=== PATIENT | female | born 1965 | race Caucasian/White ===

== ENCOUNTER → 2017-09-12 | Outpatient (CLI) | payer BC ==
--- NOTE | 2017-09-12 15:37 | MAMMOGRAPHY REPORT ---
BILATERAL DIGITAL SCREENING MAMMOGRAM TOMOSYNTHESIS WITH CAD: 09/12/2017 CLINICAL HISTORY: Routine screening. Patient has no complaints. TECHNIQUE: Breast tomosynthesis in addition to standard 2D mammography was performed. Current study was also evaluated with a Computer Aided Detection (CAD) system. COMPARISON: Comparison is made to exams dated: 09/11/2016 mammogram, 09/08/2015 mammogram, 09/07/2014 m ammogram, 09/06/2013 mammogram, 09/03/2012 mammogram, and 04/16/2011 mammogram - [facility] enter. BREAST COMPOSITION: The tissue of both breasts is heterogeneously dense, which may obscure small mas ses. FINDINGS: No suspicious masses, calcifications, or areas of architectural distortion are noted in ei ther breast. There has been no significant interval change compared to prior exams. Bilateral benign appearing calcifications are not significantly changed. IMPRESSION: ACR BI-RADS CATEGORY 2: BENIGN There is no mammographic evidence of malignancy. A 1 year screening mammogram is recommended. The pa tient will receive written notification of the results. Approximately 10% of breast cancers are not detected with mammography. A negative mammographic report should not delay biopsy if a clinically suggestive mass is present. Avril De Souza M.D. /:09/12/2017 12:58:44 Account Review Specialist: Sheeba BARNETT)(M), [facility] letter sent: Normal 1/2 BI-RADS Code: ACR BI-RADS Category 2: Benign
== END | disposition home or self-care (01) ==
LOC: C.MAMM 09:58
PROVIDERS: ATTEND Obstetrics & Gynecology
DX: Z12.31 Encounter for screening mammogram for malignant neoplasm of breast (principal)

== ENCOUNTER 2017-11-02 15:32 | Emergency (ER) | payer BC ==
[~2017-11-02] VITALS: Ht 180.3 cm; Wt 77.1 kg
[2017-11-02 15:34] VITALS: TEMP 36.5; Ht 180.3 cm; Wt 77.1 kg
[2017-11-02] MEDS ORDERED: SODIUM CHLORIDE 0.9% 1000ML 500 ML IV STA (15:49)
[2017-11-02] MEDS ORDERED: DILTIAZEM BOLUS / DRIP IV STA (15:49)
[2017-11-02] MEDS ORDERED: VNTHFA/IN INH (15:54)
[2017-11-02] MEDS ORDERED: VERA120T15 PO (15:54)
[2017-11-02 15:57] VITALS: O2SAT 99
[2017-11-02 15:57] LABS: BASO % 0.2 %; BASO ABS # 0.02 K/uL (0-0.2); EOS % 1.6 %; EOS ABS # 0.17 K/uL (0-0.5); HEMOGLOBIN 14.4 g/dL (12.0-16.0); IG# 0.02 K/uL (0.00-0.02); LYMPH % 25.2 %; LYMPH ABS # 2.64 K/uL (1.2-3.4); MEAN CELL VOLUME 90.1 fL (80-100); MEAN CORPUSCULAR HEMOGLOBIN 31.6 pg (25-34); MEAN CORPUSCULAR HGB CONC 35.1 g/dl (32-36); MEAN PLATELET VOLUME 10.2 fL (7.4-10.4); MONO % 8.9 %; MONO ABS # 0.93 K/uL (0.11-0.59); NEUT % 63.9 %; NEUT ABS # 6.69 K/uL (1.4-6.5); PLATELET COUNT 294 K/uL (130-400); RED CELL DISTRIBUTION WIDTH CV 13.3 % (11.5-14.5); RED CELL DISTRIBUTION WIDTH SD 43.5 fL (36.4-46.3); WHITE BLOOD COUNT 10.47 K/uL (4.8-10.8)
[2017-11-02] MEDS ORDERED: DILTIAZEM HCL INJ 125 MG in DEXTROSE 5% 100ML IV PRN (16:00)
[2017-11-02 16:06] LABS: PTT PATIENT 25.4 SECONDS (21.0-31.0)
[2017-11-02] MEDS ORDERED: DILTIAZEM HCL 5 MG/ML 5 ML VIAL ONE (16:09)
--- NOTE | 2017-11-02 16:13 | EMERGENCY ROOM VISIT NOTE ---
History Report prepared by Kyra: Sharla Fam Under the Supervision of: Dr. Eliot Merida M.D. First contact with patient: 15:38 Chief Complaint: CARDIAC ASSESSMENT Stated Complaint: CARDIAC ARRYTHMIA History of Present Illness The patient is a 52 year old female who presents to the Emergency Room for a cardiac assessment. The patient states that that she has atrial fibrillation and thinks she noticed it this morning. She notes that she woke up last night and felt strange so she believes that it may have started in the middle of the night. She states that it feels like her heart is jumping around and she has pressure on her chest. She reports that she took Verapamil 120 mg this morning, but states that it was from four years ago. The patient complains of weakness and lightheadedness. The patient denies shortness of breath, nausea, and vomiting. She denies taking a blood thinner, drinking more alcohol than normal, and ever being cardioverted. She notes that she takes Albuterol for asthma and had a heart catheterization that was normal. Source of History: patient Onset: this morning Position: other (global) Quality: pressure Timing: other (episode) Associated Symptoms: + chest pain, + weakness, No SOB, No nausea, No vomiting Note: The patient complains of lightheadedness. Review of Systems See HPI for pertinent positives & negatives. A total of 10 systems reviewed and were otherwise negative. Past Medical & Surgical Medical Problems: (1) Asthma (2) Asthma W/O Status Asthm (3) Atrial fibrillation (4) H/O Prinzmetal angina (5) Tachycardia Nos Family History Patient reports no known family medical history. Social History Smoking Status: Never Smoker Marital Status: Housing Status: lives with family Occupation Status: employed Current/Historical Medications Scheduled Albuterol Hfa (Ventolin Hfa), 2-4 PUFFS INH Q6H Verapamil (Calan), 120 MG PO DAILY Allergies Coded Allergies: Penicillins (Verified Allergy, Severe, HIVES, THROAT TIGHT, 11/02/17) HIVES, THROAT TIGHT Animal Dander (Verified Allergy, Unknown, 11/02/17) POLLEN (Verified Allergy, Unknown, HAYFEVER, 11/02/17) Shellfish (Verified Allergy, Unknown, 11/02/17) Physical Exam Vital Signs Date Time Temp Pulse Resp B/P (MAP) Pulse Ox O2 Delivery O2 Flow Rate FiO2 12/31/17 17:46 73 18 111/81 98 Room Air 11/02/17 16:30 77 11/02/17 16:18 90 18 115/88 99 Room Air 11/02/17 15:59 100 Room Air 11/02/17 15:58 Room Air 11/02/17 15:57 99 Room Air 11/02/17 15:53 102 11/02/17 15:34 36.5 96 17 143/79 100 Room Air Physical Exam GENERAL: Patient is in no acute distress. HEENT: No acute trauma, normocephalic atraumatic, mucous membranes moist, no nasal congestion, no scleral icterus. NECK: No stridor, no adenopathy, no meningismus, trachea is midline. LUNGS: Clear to auscultation bilaterally, no wheeze, no rhonchi, breath sounds equal. HEART: Tachycardic rate. Irregular rhythm. No murmurs. ABDOMEN: Soft, nontender, bowel sounds positive, no hernias, no peritonitis. EXTREMITIES: No cyanosis or edema, full range of motion of all the joints without pain or difficulty, no signs for acute trauma. NEUROLOGIC: Oriented x 3, no acute motor or sensory deficits, no focal weakness. SKIN: No rash, no jaundice, no diaphoresis. Medical Decision & Procedures ER Provider Diagnostic Interpretation: Radiology results as stated below per my review and radiologist interpretation: CHEST ONE VIEW PORTABLE CLINICAL HISTORY: EVALUATE ALTERED MENTAL STATUS/WEAKNESS COMPARISON STUDY: No previous studies for comparison. FINDINGS: The bones soft tissues and hemidiaphragms are normal. The cardiomediastinal silhouette is normal. The lungs are clear. The pulmonary vasculature is normal. IMPRESSION: Negative chest. The above report was generated using voice recognition software. It may contain grammatical, syntax or spelling errors. Electronically signed by: Maxwell Choudhury M.D. 11/02/2017 4:14 PM Dictated Date/Time: 11/02/2017 4:14 PM Laboratory Results 11/02/17 15:50 Red Blood Count 4.55, Mean Corpuscular Volume 90.1, Mean Corpuscular Hemoglobin 31.6, Mean Corpuscular Hemoglobin Concent 35.1, Mean Platelet Volume 10.2, Neutrophils (%) (Auto) 63.9, Lymphocytes (%) (Auto) 25.2, Monocytes (%) (Auto) 8.9, Eosinophils (%) (Auto) 1.6, Basophils (%) (Auto) 0.2, Neutrophils # (Auto) 6.69, Lymphocytes # (Auto) 2.64, Monocytes # (Auto) 0.93, Eosinophils # (Auto) 0.17, Basophils # (Auto) 0.02 11/02/17 15:50 Test 11/02/17 15:50 White Blood Count 10.47 K/uL (4.8-10.8) Red Blood Count 4.55 M/uL (4.2-5.4) Hemoglobin 14.4 g/dL (12.0-16.0) Hematocrit 41.0 % (37-47) Mean Corpuscular Volume 90.1 fL (80-100) Mean Corpuscular Hemoglobin 31.6 pg (25-34) Mean Corpuscular Hemoglobin Concent 35.1 g/dl (32-36) Platelet Count 294 K/uL (130-400) Mean Platelet Volume 10.2 fL (7.4-10.4) Neutrophils (%) (Auto) 63.9 % Lymphocytes (%) (Auto) 25.2 % Monocytes (%) (Auto) 8.9 % Eosinophils (%) (Auto) 1.6 % Basophils (%) (Auto) 0.2 % Neutrophils # (Auto) 6.69 K/uL (1.4-6.5) Lymphocytes # (Auto) 2.64 K/uL (1.2-3.4) Monocytes # (Auto) 0.93 K/uL (0.11-0.59) Eosinophils # (Auto) 0.17 K/uL (0-0.5) Basophils # (Auto) 0.02 K/uL (0-0.2) RDW Standard Deviation 43.5 fL (36.4-46.3) RDW Coefficient of Variation 13.3 % (11.5-14.5) Immature Granulocyte % (Auto) 0.2 % Immature Granulocyte # (Auto) 0.02 K/uL (0.00-0.02) Prothrombin Time 10.5 SECONDS (9.0-12.0) Prothromb Time International Ratio 1.0 (0.9-1.1) Activated Partial Thromboplast Time 25.4 SECONDS (21.0-31.0) Partial Thromboplastin Ratio 1.0 Anion Gap 2.0 mmol/L (3-11) Est Creatinine Clear Calc Drug Dose 101.6 ml/min Estimated GFR () 109.5 Estimated GFR (Non- 94.5 BUN/Creatinine Ratio 13.4 (10-20) Calcium Level 8.6 mg/dl (8.5-10.1) Magnesium Level 2.0 mg/dl (1.8-2.4) Total Bilirubin 0.4 mg/dl (0.2-1) Aspartate Amino Transf (AST/SGOT) 13 U/L (15-37) Alanine Aminotransferase (ALT/SGPT) 22 U/L (12-78) Alkaline Phosphatase 62 U/L (45-117) Troponin I < 0.015 ng/ml (0-0.045) Total Protein 7.5 gm/dl (6.4-8.2) Albumin 3.7 gm/dl (3.4-5.0) Globulin 3.8 gm/dl (2.5-4.0) Albumin/Globulin Ratio 1.0 (0.9-2) Thyroid Stimulating Hormone (TSH) 0.646 uIu/ml (0.300-4.500) Laboratory results reviewed by me. Medications Administered Medications (Trade) Dose Ordered Sig/Tonio Route Start Time Stop Time Status Last Admin Dose Admin Sodium Chloride 500 ml @ 999 mls/hr Q31M STAT IV 11/02/17 15:49 11/02/17 16:19 DC 11/02/17 16:03 999 MLS/HR Diltiazem HCl (Cardizem Bolus / Drip) 1 ea NOW STAT IV 11/02/17 15:49 11/02/17 15:51 DC 11/02/17 16:18 1 EA Diltiazem HCl 125 mg/Dextrose 125 ml @ 0 mls/hr Q0M PRN IV 11/02/17 16:00 11/02/17 18:50 DC 11/02/17 16:17 5 MLS/HR Diltiazem HCl (Cardizem Inj) 25 mg STK-MED ONCE .ROUTE 11/02/17 16:09 11/02/17 16:10 DC 11/02/17 16:14 5 MG Verapamil HCl (Isoptin Tab) 80 mg NOW STAT PO 11/02/17 17:49 11/02/17 17:51 DC 11/02/17 18:12 80 MG Verapamil HCl (Calan-Sr Tab) 120 mg NOW STAT PO 11/02/17 17:49 11/02/17 17:51 DC 11/02/17 18:13 120 MG ECG Indication: chest pain Rate (beats per minute): 112 Rhythm: atrial fibrillation Findings: no acute ischemic change, other (LVH, possible old septal infarct) ED Course 1542: The patient was evaluated in room C12B. A complete history and physical exam was performed. 1549: Ordered Diltiazem HCl 1 ea IV, NSS 500 ml @ 999 mls/hr IV. 1600: Ordered Dilitiazem HCl 125 mg/ Dextrose 125 ml @ 0 mls/hr Protocol PRN IV Titration. 1615: Ordered Diltiazem HCl 5 mg IV. 1638: I reevaluated the patient and she still feels her heart jumping around, but can tell it is slower. 1707: I spoke to Dr. Epstein and they are comfortable with the patient going home to see if she converts over night. They will talk tomorrow and discuss a follow up appointment. 1744: I spoke to the pharmacy regarding the dosing for Verapamil. 1749: Ordered Verapamil HCl 120 mg PO, Verapamil HCl 80 mg PO. 1757: Reevaluated the patient. Discussed results and discharge instructions: She verbalized understanding and agreement. The patient is ready for discharge. Medical Decision Differential diagnoses include atrial fibrillation, atrial flutter, SVT, electrolyte abnormality, anemia, dehydration, pneumonia, CHF, MS. There is no leukocytosis or concerning anemia. No significant electrolyte abnormality, kidney failure, hepatitis. The patient appears to be in a euthyroid state. EKG shows a rapid A. fib with some LVH, no acute ischemic change. Cardiac enzyme testing times one is not consistent with acute cardiac injury. Chest film does not show pneumonia, mediastinal widening, cardiomegaly or pneumothorax. The patient was given an IV saline bolus, she received a bolus of IV diltiazem and was placed on a diltiazem drip. Her heart rate decreased to the 70s at times, she remained in A. fib. I discussed the case with the on-call dollyman. As the patient has just been in A. fib for a short time, less than one day, she is being discharged to see if she will convert on her own overnight. She will contact cardiology tomorrow to report her status. No anticoagulation for now as per cardiology. The patient was given 80 mg of oral verapamil here. She was given a pill of verapamil to take tomorrow morning as well. She was encouraged to return for a rapid heart rate, shortness of breath or worsening symptoms. Medication Reconcilliation Current Medication List: was personally reviewed by me Blood Pressure Screening Patient's blood pressure: Normal blood pressure Blood pressure disposition: Did not require urgent referral Consults Time Called: 1640 Consulting Physician: Dr. Epstein- Cardiology Returned Call: [address] Epstein and they are comfortable with the patient going home to see if she converts over night. They will talk tomorrow and discuss a follow up appointment. Additional Consults: Time Called: 1743 Consulted Physician: Pharmacy Returned Call: [phone] Additional Comments: I spoke to the pharmacy regarding the dosing for Verapamil. Impression Primary Impression: Rapid atrial fibrillation Scribe Attestation The scribe's documentation has been prepared under my direction and personally reviewed by me in its entirety. I confirm that the note above accurately reflects all work, treatment, procedures, and medical decision making performed by me. Departure Information Dispostion Home / Self-Care Referrals Moon Bhatia M.D. (PCP) Forms IMPORTANT VISIT INFORMATION Patient Instructions My [facility] Additional Instructions take verapamil tomorrow in the am if still in afib call and talk with cardiology tomorrow around 9 am---[phone], Dr. Epstein return for worsening symptoms, fast heart rate lab testing was all ok today
[2017-11-02 16:14] LABS: ALBUMIN 3.7 gm/dl (3.4-5.0); ALT/SGPT 22 U/L (12-78); AST/SGOT 13 U/L (15-37); BLOOD UREA NITROGEN 10 mg/dl (7-18); CALCIUM 8.6 mg/dl (8.5-10.1); CARBON DIOXIDE 31 mmol/L (21-32); CREATININE 0.74 mg/dl (0.60-1.20); GLUCOSE 97 mg/dl (70-99); POTASSIUM 3.5 mmol/L (3.5-5.1); SODIUM 137 mmol/L (136-145)
[2017-11-02] MEDS ORDERED: DILTIAZEM BOLUS FROM BAG IV ONE (16:15)
[2017-11-02 16:25] LABS: ALKALINE PHOSPHATASE 62 U/L (45-117); TOTAL PROTEIN 7.5 gm/dl (6.4-8.2)
[2017-11-02 17:46] VITALS: BP 111/81; PULSE 73; O2SAT 98
[2017-11-02] MEDS ORDERED: VERAPAMIL HCL 40 MG TAB PO STA (17:49)
[2017-11-02] MEDS ORDERED: VERAPAMIL HCL 120 MG TABCR PO STA (17:49)
[2017-11-02] MEDS ORDERED: AMOXICIL/CLAVU 875MG HOME PACK PO ONE (18:24)
== END 2017-11-02 18:17 | disposition home or self-care (01) ==
LOC: C.EDB 15:33 → C.EDC 18:17
DX: I48.91 Unspecified atrial fibrillation (principal); R42 Dizziness and giddiness; J45.909 Unspecified asthma, uncomplicated; Z98.890 Other specified postprocedural states